=== PATIENT | female | born 1995 ===

== ENCOUNTER 2018-07-18 | Emergency (ER) | payer MEDICAID ==
[2018-07-18 00:01] VITALS: BMI 24.9
[2018-07-18 00:50] VITALS: BP 130/87; PULSE 87; RESP 15; TEMP 99.2; O2SAT 100
--- NOTE | 2018-07-18 02:13 | ED PDOC ---
HPI: Eye Injury/Pain Time Seen by Provider: 07/18/18 01:50 Chief Complaint (Nursing): Eye Problem Chief Complaint (Provider): blurred vision History Per: Patient History/Exam Limitations: no limitations Onset/Duration Of Symptoms: Hrs Current Symptoms Are (Timing): Gone Now Additional Complaint(s): 23 y/o female presents for evaluation of blurred vision to both eyes prior to arrival. Patient states she was watching tv when symptoms started; states she went to the bathroom and took off her glasses and started rubbing her eyes and when she opened them they were still blurry, left more than right. Patient states she then started panicking and crying and got ready to come to ED and symptoms resolved upon arrival to ED. Patient states she has astigmatism in one eye, not sure which. Denies headache, dizziness, extremity numbness/weakness, neck pain, chest pain, shortness of breath, palpitations. Past Medical History Reviewed: Historical Data, Nursing Documentation, Vital Signs Vital Signs: Last Vital Signs Temp 99.2 F 07/18/18 00:47 Pulse 87 07/18/18 00:47 Resp 15 07/18/18 00:47 BP 130/87 07/18/18 00:47 Pulse Ox 100 07/18/18 00:47 - Medical History PMH: Gastritis - Surgical History Surgical History: No Surg Hx - Family History Family History: States: Unknown Family Hx - Immunization History Hx Tetanus Toxoid Vaccination: No Hx Influenza Vaccination: No Hx Pneumococcal Vaccination: No - Home Medications Home Medications: Ambulatory Orders Medication Instructions Recorded Famotidine [Pepcid] 20 mg PO BID #30 tab 04/11/14 Azithromycin [Zithromax] 250 mg PO DAILY #6 tab 08/14/16 Benzonatate [Tessalon Perles] 100 mg PO Q8 #30 sgl 08/14/16 - Allergies Allergies/Adverse Reactions: Allergies Allergy/AdvReac Type Severity Reaction Status Date / Time No Known Allergies Allergy Unverified 07/18/18 00:50 Review of Systems ROS Statement: Except As Marked, All Systems Reviewed And Found Negative Eyes: Positive for: Vision Change Physical Exam - Reviewed Nursing Documentation Reviewed: Yes Vital Signs Reviewed: Yes - Physical Exam Appears: Positive for: Well, Non-toxic, No Acute Distress Head Exam: Positive for: ATRAUMATIC, NORMAL INSPECTION, NORMOCEPHALIC Skin: Positive for: Normal Color Eye Exam: Positive for: Normal appearance, EOMI, PERRL ENT: Positive for: Normal ENT Inspection Cardiovascular/Chest: Positive for: Regular Rate, Rhythm Respiratory: Positive for: Normal Breath Sounds Back: Positive for: Normal Inspection Extremity: Positive for: Normal ROM Neurologic/Psych: Positive for: Alert, Oriented (x3). 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
== END 2018-07-18 02:28 | disposition home or self-care (01) ==
LOC: H.ER
DX: H53.8 Other visual disturbances (principal)